=== PATIENT | female | born 1975 | race Caucasian/White ===

== ENCOUNTER 2022-01-15 02:04 | Emergency (ER) | payer OTHER ==
[2022-01-15] MEDS ORDERED: Ketorolac Tromethamine 30 MG/ML VIAL ONE (07:42)
[2022-01-15] MEDS ORDERED: Promethazine HCl 25 MG/ML VIAL ONE (07:42)
[2022-01-15] MEDS ORDERED: Sodium Chloride 0.9% 50 ML BAG ONE (07:42)
[2022-01-15] MEDS ORDERED: diphenhydrAMINE 50 MG/ML VIAL ONE (07:42)
[2022-01-15] MEDS ORDERED: Sodium Chloride 0.9% 1,000 ML BAG ONE (07:42)
== END 2022-01-15 04:40 | disposition home or self-care (01) ==
LOC: MADERS 02:04
DX: G44.209 Tension-type headache, unspecified, not intractable (principal); T50.905A Adverse effect of unspecified drugs, medicaments and biological substances, initial encounter
CPT/HCPCS: 70450; 96361; 96365; 96375; J1200; J1885; J2550; J7050